=== PATIENT | female | born 1975 | race African-American/Black ===

== ENCOUNTER 2020-12-19 04:09 | Emergency (ER) | payer OTHER ==
[~2020-12-19] VITALS: Ht 160 cm; Wt 81.7 kg
[~2020-12-19 04:09] MED LIST: LOESTRIN 24 FE1 EACH PO
[2020-12-19 04:18] VITALS: BP 131/87
[2020-12-19] MEDS ORDERED: FLEXERIL PO (04:35)
[2020-12-19] MEDS ORDERED: APAP W/CODEINE1 TA2 PO (04:35)
== END 2020-12-19 04:58 | disposition home or self-care (01) ==
LOC: ER 04:09
DX: M54.9 Dorsalgia, unspecified (principal); Z98.51 Tubal ligation status; Z90.49 Acquired absence of other specified parts of digestive tract; Z88.6 Allergy status to analgesic agent